=== PATIENT | female | born 1970 | race American Indian/Alaskan Native ===

== ENCOUNTER 2019-01-25 06:20 | Emergency (ER) | payer OTHER ==
[2019-01-25 06:30] VITALS: BP 158/85
[2019-01-25] MEDS ORDERED: IBUPROFEN 800 MG TAB PO ONE (07:24)
--- NOTE | 2019-01-25 07:24 | Emergency Department Report ---
Minor Respiratory - HPI Chief Complaint: Earache Stated Complaint: LEFT EARACHE Time Seen by Provider: 01/25/19 07:14 Duration: 2 Days Pain Location: Ear Severity: severe Minor Respiratory: Yes Rhinorrhea (nasal congestion), Yes Able to Tolerate Fluids, Yes Ear Pain (left ear pain), No Sore Throat, No Cough, No Sick Contacts, No Hemoptysis, No Chest Pain, No Shortness of Breath, No Fever Other History: This is a 48-year-old female who reports that she has been having left earache for 2 days. She said her ears feel clogged and also complaining or runny nose or congestion with drainage at the back of her throat. Denies any nausea vomiting. Denies any difficulty breathing or coughing. Denies any chest pain. Denies any headache or visual difficulties. Taken [id number] Motrin without any relief. ED Review of Systems ROS: Stated complaint: LEFT EARACHE Other details as noted in HPI Constitutional: denies: chills, fever Eyes: denies: eye pain, eye discharge, vision change ENT: ear pain, congestion. denies: throat pain, dental pain, hearing loss, epistaxis Respiratory: denies: cough, shortness of breath, SOB with exertion, SOB at rest, stridor, wheezing Cardiovascular: denies: chest pain, palpitations, edema, syncope Gastrointestinal: denies: nausea, vomiting Musculoskeletal: denies: back pain, arthralgia Skin: denies: rash Neurological: denies: headache, abnormal gait, vertigo ED Past Medical Hx - Past Medical History Previous Medical History?: No - Surgical History Past Surgical History?: Yes Additional Surgical History: Hysterectomy - Family History Family history: hypertension - Social History Smoking Status: Never Smoker Substance Use Type: None - Medications Home Medications: Home Medications Medication Instructions Recorded Confirmed Last Taken Type Amoxicillin/K Clav Tab [Augmentin 1 tab PO Q12HR #20 tab 01/25/19 Unknown Rx 875MG TAB] Ibuprofen [Motrin 800 MG tab] 800 mg PO ONCE #12 tablet 01/25/19 Unknown Rx Minor Respiratory Exam - Exam General: Vital signs noted. No distress. Alert and acting appropriately. 48-year-old female well-nourished well-developed in no acute distress HEENT: Yes Moist Mucous Membranes, Yes Rhinorrhea (pale and boggy with clear drainage), No Pharyngeal Erythema, No Pharyngeal Exudates, No Conjuctival Injection, No Frontal Tenderness, No Maxillary Tenderness Ear: Left TM Erythema (congested without erythema), Neither TM Bulge (ingested behind bilateral middle ear), Neither EAC Pain, Neither EAC Discharge Neck: Yes Supple (full range of motion and no C-spine tenderness), No Adenopathy Lungs: Yes Good Air Exchange, No Wheezes, No Ronchi, No Stridor, No Cough, No Labored Respirations, No Retractions, No Use of Accessory Muscles, No Other Abnormal Lung Sounds Heart: Yes Regular, No Murmur Abdomen: Yes Normal Bowel Sounds, No Tenderness, No Peritoneal Signs Skin: No Rash, No Edema Neurologic: Alert and oriented, no deficits. Musculoskeletal: Unremarkable. No cce. + 2 pulses in all extremities, no neurovascular compromise ED Course Vital Signs 01/25/19 06:28 Temperature 98.3 F Pulse Rate 65 Respiratory 12 Rate Blood Pressure 158/85 O2 Sat by Pulse 100 Oximetry - Reevaluation(s) Reevaluation #1: 01/25/19 07:48 Patient received Motrin 800 mg in emergency room which relieved her ear pain ED Medical Decision Making - Medical Decision Making This is a 48-year-old female here for left earache and bilateral air clogged feeling. No other symptoms. Normal examination except she has left TM with erythema and bilateral middle ear with effusion. She also has pale and boggy nasal mucosa. I discussed with her diagnosis which is otitis media of left ear with upper respiratory infection and she voiced understanding. I discussed with her that this she will need to take Zyrtec to help with congestion and I will put her on antibiotic and she voiced understanding she was given Motrin and emergency room. Pain is better., Vital signs stable and she is afebrile and discharged home to follow up with her primary care in 2-3 days with prescription for Augmentin and Motrin Critical care attestation.: If time is entered above; I have spent that time in minutes in the direct care of this critically ill patient, excluding procedure time. ED Disposition Clinical Impression: Otitis media of left ear Qualifiers: Otitis media type: unspecified Qualified Code(s): H66.92 - Otitis media, unsp ecified, left ear Upper respiratory infection Qualifiers: URI type: unspecified URI Qualified Code(s): J06.9 - Acute upper respiratory infection, unspecified Disposition: DC-01 TO HOME OR SELFCARE Is pt being admited?: No Does the pt Need Aspirin: No Condition: Stable Instructions: Otitis Media (ED), Upper Respiratory Infection (ED) Additional Instructions: Please take medication as prescribed Turn to the emergency room if your condition worsens Prescriptions: Ibuprofen [Motrin 800 MG tab] 800 mg PO ONCE #12 tablet Referrals: [facility] [Outside] - 3-5 Days Forms: Work/School Release Form(ED)
== END 2019-01-25 08:18 | disposition home or self-care (01) ==
LOC: ED 06:20
DX: H66.92 Otitis media, unspecified, left ear (principal); J06.9 Acute upper respiratory infection, unspecified; Z90.710 Acquired absence of both cervix and uterus; Z79.899 Other long term (current) drug therapy